=== PATIENT | male | born 1985 | race Two or more races ===

== ENCOUNTER 2018-06-27 20:38 | Emergency (ER) | payer OTHER ==
[2018-06-27] MEDS ORDERED: IBUPROFEN 600 MG TABLET PO ONE (23:04)
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
[2018-06-28 01:25] VITALS: BP 120/79
== END 2018-06-28 01:29 | disposition home or self-care (01) ==
LOC: ER 20:38
DX: S16.1XXA Strain of muscle, fascia and tendon at neck level, initial encounter (principal); S29.012A Strain of muscle and tendon of back wall of thorax, initial encounter; M54.2 Cervicalgia; M54.9 Dorsalgia, unspecified; R51 Headache; V43.52XA Car driver injured in collision with other type car in traffic accident, initial encounter
CPT/HCPCS: 72070; 72110; 72125; 99284